=== PATIENT | female | born 1965 | race Two or more races ===

== ENCOUNTER 2016-11-20 05:36 | Day surgery (SDC) | payer MEDICARE ==
[~2016-11-20 05:36] MED LIST: LACTATED RINGERS 1,000 ML IV SCH; LIDOCAINE 1% 2 ML VIAL ID PRN
[2016-11-20] MEDS ORDERED: LACTATED RINGERS 1,000 ML ONE ×2 (05:58→08:45)
[2016-11-20] MEDS ORDERED: IV START KIT ONE (05:59)
[2016-11-20] MEDS ORDERED: LACTATED RINGERS 1,000 ML IV SCH ×2 (06:00→07:15)
[2016-11-20] MEDS ORDERED: LIDOCAINE 1% 2 ML VIAL ID PRN (06:00)
[2016-11-20] MEDS ORDERED: PROPOFOL 20 ML IV ONE ×5 (06:30→07:52)
[2016-11-20] MEDS ORDERED: LIDOCAINE 2% (MULTI DOSE) 10 ML VIAL ONE (06:30)
[2016-11-20] MEDS ORDERED: MIDAZOLAM HCL 1 MG/ML 2ML VIAL ONE (06:33)
[2016-11-20] MEDS ORDERED: FENTANYL 100 MCG/2 ML VIAL ONE (06:33)
[2016-11-20 06:44] LABS: HEMATOCRIT 37.2 % (37.0-47.0); HEMOGLOBIN 10.9 gm/l (12.0-16.0); MEAN CORPUSCULAR HGB CONC 29.3 g/dl (33.0-37.0); RED CELL DISTRIBUTION WIDTH 16.1 % (11.5-14.5)
[2016-11-20] MEDS ORDERED: SCOPOLAMINE 1.5 MG/72 HR 1 EACH PATCH TD ONE (06:53)
[2016-11-20] MEDS ORDERED: HYDROMORPHONE HCL 1 MG/ML SYRINGE IV PRN (07:02)
[2016-11-20] MEDS ORDERED: MEPERIDINE 25 MG/ML SYRINGE IV PRN (07:02)
[2016-11-20] MEDS ORDERED: ATROPINE SULFATE 0.4 MG/1 ML VIAL IV PRN (07:02)
[2016-11-20] MEDS ORDERED: ONDANSETRON 4 MG/2ML 2 ML VIAL IV PRN (07:02)
[2016-11-20] MEDS ORDERED: NALOXONE HCL 0.4 MG/ML VIAL IV PRN (07:02)
[2016-11-20] MEDS ORDERED: PROMETHAZINE HCL 25 MG/ML VIAL IM PRN (07:02)
[2016-11-20] MEDS ORDERED: FENTANYL 100 MCG/2 ML VIAL IV PRN (07:02)
[2016-11-20 07:09] LABS: ALB/GLOB RATIO 1.2 (>1.0); ALBUMIN 4.2 gm/dL (3.5-5.7); CALCIUM 9.4 mg/dL (8.6-10.3)
[2016-11-20 07:26] LABS: URINE APPEARANCE CLEAR; URINE BILIRUBIN NEGATIVE (NEGATIVE); URINE BLOOD NEGATIVE (NEGATIVE); URINE COLOR YELLOW; URINE GLUCOSE (UA) 3+ (NEGATIVE); URINE LEUKOCYTE ESTERASE NEGATIVE (NEGATIVE); URINE NITRITE NEGATIVE (NEGATIVE); URINE PROTEIN NEGATIVE (NEGATIVE); URINE UROBILINOGEN NORMAL (0-1 mg/dl)
[2016-11-20 07:27] LABS: HCG,QUALITATIVE URINE NEGATIVE
[2016-11-20] MEDS ORDERED: KETAMINE HCL UD SYRINGE 100 MG/2 ML IV ONE (07:49)
[2016-11-20] MEDS ORDERED: SUCCINYLCHOLINE CHL 20 MG/ML DOSE ONE (07:49)
[2016-11-20] MEDS ORDERED: ROCURONIUM BROMIDE 10 MG/ML DOSE IV ONE (07:49)
[2016-11-20] MEDS ORDERED: ONDANSETRON 4 MG/2ML 2 ML VIAL ONE (07:50)
[2016-11-20] MEDS ORDERED: METOCLOPRAMIDE HCL 5 MG/ML 2ML VIAL ONE (07:50)
[2016-11-20] MEDS ORDERED: EPHEDRINE SULFATE UD SYR 25 MG 25 MG/5 ML SYRINGE IV ONE (07:57)
[2016-11-20] MEDS ORDERED: OXYCODONE/ACETAMINOPHEN 5/325 MG TABLET PO PRN (08:06)
[2016-11-20] MEDS ORDERED: IBUPROFEN 800 MG TABLET PO PRN (08:06)
[2016-11-20] MEDS ORDERED: NEOSTIGMINE METHYLSULFATE 1 MG/ML DOSE ONE (08:12)
[2016-11-20] MEDS ORDERED: GLYCOPYRROLATE 0.2 MG/ML 1ML VIAL ONE (08:12)
--- NOTE | 2016-11-20 08:16 | PCMBPN ---
Brief Post Op Note: Date of Procedure: 11/20/16 Start Time: Preoperative Diagnosis: 1. endometrial hyperplasia, abnormal uterine bleeding Postoperative Diagnosis: 1. endometrial hyperplasia, abnormal uterine bleeding, endometrial polyp Procedure: dilatation and curettage, hysteroscopy Surgeon: Izaiah Asencio Assist: Anesthesia: general, mr novoa Findings: external genitalia healthy, vagina healthy, cervix pink, uterus top normal size, anteverted, adnexa negative, sounded to 9 cm, scanty curettings, hysteroscopy: atrophic endometrium with tiny polyp Condition: stable Complications: none IV Fluids: mLs of LR Urine Output: 200 mLs Estimated Blood Loss: less than 5 mLs Tourniquet Time: N/A Specimens: endocervical and endometrial curettings Implants: Drains: N/A patient tolerated procedure well and was returned to recovery room in stable condition.
[2016-11-20] MEDS ORDERED: ALBUTEROL NEB 2.5 MG/3 ML VIAL.NEB NEB ONE ×2 (08:22→08:27)
--- NOTE | 2016-11-20 10:59 | OP ---
Stephani Brooks : 1965 NAME OF OPERATION: Dilation and curettage, and hysteroscopy. PREOPERATIVE DIAGNOSES: 1. Endometrial hyperplasia. 2. Abnormal uterine bleeding. POSTOPERATIVE DIAGNOSES: 1. Endometrial hyperplasia. 2. Abnormal uterine bleeding. 3. Tiny endometrial polyp. COURT COMMISSIONER: Dr. Izaiah Hernandez ANESTHESIA: Mr. Merchant, General. DESCRIPTION OF PROCEDURE: Begins with patient under general anesthesia. She was placed in the lithotomy position and the local area was prepared with Betadine and draped in the usual manner. The bladder was emptied of 200 mL of clear yellow urine by straight catheterization. After a timeout was performed exam under anesthesia revealed the external genitalia healthy, vagina was healthy. Patient did have a mesh placed in the past and the mesh appeared to be intact by palpation. Cervix was pink. The uterus was top normal size and anteverted. The adnexa negative. A weighted speculum was introduced into the vagina gently. The anterior lip of the cervix grasped with a single prong tenaculum. Curettage from the endocervical canal produced scanty amounts of mucous and blood. Next, the uterus was sounded to 9 cm. The cervix then gradually dilated with Renetta dilators and curettage produced approximately 1 to 2 mL of endometrial curettings. Hysteroscopic exam was then performed using normal saline as the irrigant. Findings included an atrophic endometrium with a tiny polyp noted towards the right of the cavity. The [employer] open claims representative was present as we were going to resect the polyp, however, an instrument seal was not available,therefore this portion of the procedure was not performed. Photographs were taken and at this point the operation was terminated. The vaginal instruments were removed. There was complete hemostasis. Sponge and instrument count reported as correct. There was a 55 mL deficit on the hysteroscopy irrigation. Estimated blood loss less than 5 mL. Patient tolerated procedure well and was returned to recovery room in stable condition. Again sponge and instrument count was reported as correct and complete hemostasis. FINAL DIAGNOSES: 1. Endometrial hyperplasia on ultrasound. 2. Abnormal uterine bleeding. 3. Minimal endometrial polyp. JOB: [id number]
--- NOTE | 2016-11-20 11:04 | DS ---
[facility]: Stephani Brooks as a 51-year-old female admitted with a history of thickened endometrium/endometrial hyperplasia on ultrasound with a history of abnormal uterine bleeding. She underwent a dilation and curettage and hysteroscopy. There was a tiny endometrial polyp noted. She tolerated the procedure well. She was sent home in good condition. Office visit in one weeks time. Activities were explained to the patient prior to her going under anesthesia. She declined any pain medication and stated she had ibuprofen at home. LABORATORY VALUES: test was negative. Her glucose was 153. The patient is a diabetic. Her hemoglobin was 10.9 and her urine was negative. FINAL DIAGNOSES: 1. Endometrial hyperplasia. 2. Endometrial polyp. 3. Abnormal uterine bleeding. 4. History of diabetes. JOB: [id number]
--- NOTE | 2016-11-24 13:28 | SURGPATH ---
[facility] [address] [place] [id number] Patient Name: MARLINE SABA MR#: [id number] : 1965 Gender: F Specimen #: [id number] Collected: 11/20/2016 Received: 11/23/2016 Reported: 11/24/2016 Submitting Phys: JOAQUÍN MCKINNON I Copy To Phys: [facility] YUE CLARK Clinical History / Pre-Operative Diagnosis: POSTMENOPAUSAL BLEEDING; ENDOMETRIAL HYPERPLASIA Specimen Source / Surgical Procedure Performed: #1-ENDOCERVICAL CURETTINGS; #2-ENDOMETRIAL CURETTINGS Interpretation: 1. ENDOCERVIX, CURETTAGE: - BENIGN ENDOCERVICAL GLANDS AND FRAGMENTS OF SQUAMOUS MUCOSA 2. ENDOMETRIUM, CURETTAGE: - SCANT FRAGMENTS OF ATROPHIC ENDOMETRIUM AND BENIGN ENDOMETRIAL GLANDS Electronically Signed Out Denisse Oakes M.D. Gross Description: #1 The specimen is received in a formalin filled container labeled with the patient's name and "endocervical curettings". An aggregate of pale rudd soft tissue admixed with blood tinged mucoid material is 0.6 x 0.5 x 0.2 cm. Totally embedded in cassette #1. #2 The specimen is received in a formalin filled container labeled with the patient's name and "endometrial curetting". An aggregate of mucoid and hemorrhagic material is 2.0 x 1.0 x 0.5 cm. Totally embedded in cassette #2. Floresita Rowe Microscopic Description: 1. Sections show fragments of benign squamous epithelium without dysplasia and scant fragments of unremarkable glandular epithelium. 2. Sections show mucinous material and benign endocervical glandular epithelium with a very small amount of atrophic-appearing endometrial tissue. 1: 42106 2: 52531 N95.0
== END 2016-11-20 10:04 | disposition home or self-care (01) ==
LOC: SDC 05:36
PROVIDERS: ATTEND Obstetrics & Gynecology
PROC: 0UB98ZX Excision of Uterus, Via Natural or Artificial Opening Endoscopic, Diagnostic (ICD-10-PCS; principal; 2016-11-20)
PROC: 0UDB8ZZ Extraction of Endometrium, Via Natural or Artificial Opening Endoscopic (ICD-10-PCS; 2016-11-20)
DX: N85.00 Endometrial hyperplasia, unspecified (principal); N93.8 Other specified abnormal uterine and vaginal bleeding; E11.9 Type 2 diabetes mellitus without complications; I10 Essential (primary) hypertension; Z79.84 Long term (current) use of oral hypoglycemic drugs
CPT/HCPCS: 81025; 85027; 80053; 81003; 58558; J3010; J2765; A9270; J2250; J2405; J7120 ×2; J2001